=== PATIENT | female | born 1960 | race Caucasian/White ===

== ENCOUNTER → 2016-09-14 | Outpatient (CLI) | payer OTHER ==
--- NOTE | 2016-09-15 00:15 | DX ---
DEXA Bone Mineral Densitometry Clinical Indications: Screening. Follow-up. Comparison: 2012 Technique: Bone Mineral Densitometry (BMD) by Dual Energy X-Ray Absorptiometry (DEXA) was performed utilizing the [email or web address] scanner. Lumbar spine was not evaluated. The bilateral hips and left fore arm were evaluated in the AP projection. Vertebral fracture assessment was also performed. AP left Hip: BMD: 0.72 gm/cm2 T-score: -2.3 SD Z-score: -1 SD No significant interval change. AP right Hip: BMD: 0.69 gm/cm2 T-score: -2.5 SD Z-score: -1.2 SD Significant interval decrease by 5.9%. AP left Forearm: BMD: 0.83 gm/cm2 T-score: -0.5 SD Z-score: 0 SD No significant interval change. Vertebral Fracture Assessment: No significant fracture deformity Conclusion: Considering the lowest measured site, patient is osteoporotic with significant interval decrease in bone density at the right hip.. The ten year risk for any major osteoporotic fracture is 8.6 % and for a hip fracture is 1.8 %. Any bone loss in this patient is probably related to aging or estrogen deficiency. Recommendations: Consider excluding secondary metabolic causes of bone loss (reported to be present in as many as 30% of patients with normal Z scores). Laboratory evaluation might include hydroxy vitamin D3 level, TSH, PTH, calcium, 24-hour urine calcium, phosphorous, albumin, creatinine, alkaline phosphatase, serum e lectrophoresis (SPEP or UPEP), anti-tissue transglutaminase antibody levels (celiac disease) and CBC . If secondary causes are excluded, then consider initiating treatment with a bisphosphonate (such a s Fosamax, Actonel or Boniva). If the patient is unable to use an oral bisphosphonate, another agent such as IV bisphosphonates (Boniva or Reclast), teriparatide (Forteo), or a selective estrogen recept or modulator (Evista) might be considered. Supplementing an insufficient diet to achieve total intakes of 1500 mg calcium and 800 International Units of vitamin D daily should be considered. Osteoporosis prevention and treatment begins by modify ing risk factors. The patient should be encouraged to participate in a regular exercise program that includes weightbearing and muscle strengthening regimens, as is clinically appropriate. Recommend follow-up DEXA in one year to assess the efficacy of pharmacologic intervention and/or jasmeet ection of appropriate secondary cause.
== END ==
LOC: BRMIMAGING 09:31
PROVIDERS: ATTEND Obstetrics & Gynecology Gynecology
DX: Z13.820 Encounter for screening for osteoporosis (principal); M81.0 Age-related osteoporosis without current pathological fracture